=== PATIENT | female | born 1995 | race Hispanic/Latino ===

== ENCOUNTER 2024-03-07 14:20 | Emergency (ER) | payer OTHER ==
[~2024-03-07] VITALS: Ht 157.5 cm; Wt 104.3 kg
[2024-03-07 15:03] VITALS: TEMP 98.7
[2024-03-07] MEDS: HYDROCODONE/APAP 5MG-325MG TAB PO ONE (15:36)
[2024-03-07 16:58] VITALS: PULSE 88; RESP 16; O2SAT 100
== END 2024-03-07 17:00 | disposition home or self-care (01) ==
LOC: ER 14:27
DX: S93.492A Sprain of other ligament of left ankle, initial encounter (principal); M79.672 Pain in left foot; W10.8XXA Fall (on) (from) other stairs and steps, initial encounter; Y93.01 Activity, walking, marching and hiking; Y92.89 Other specified places as the place of occurrence of the external cause; R73.03 Prediabetes
CPT/HCPCS: 99283